=== PATIENT | female | born 1960 | race Caucasian/White ===

== ENCOUNTER → 2022-07-24 09:43 | Outpatient (CLI) | payer OTHER, SELFPAY ==
[2022-07-24 11:23] LABS: COVID19 -Nasal RAPID Negative (Negative)
== END ==
PROVIDERS: PCP Family Medicine; Visit Provider Surgery
DX: Z20.822 Contact with and (suspected) exposure to COVID-19 (principal); Z01.812 Encounter for preprocedural laboratory examination
CPT/HCPCS: 87635; C9803

== ENCOUNTER 2022-07-27 11:08 | Day surgery (SDC) | payer OTHER, SELFPAY ==
--- NOTE | 2022-07-27 | PATH_ITS ---
[facility] Accession Number: [id number] . 01 Material submitted: . PART A: colon - TRANSVERSE COLON POLYP X 2 PART B: colon - DESCENDING COLON POLYP X 2 PART C: rectosigmoid junction - RECTAL SIGMOID COLON POLYP . 01 Diagnosis: A. Transverse Colon Polyps: Tubular adenomas (two polyps removed). . B. Descending Colon Polyps: Tubular adenoma x2. . C. 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 No malignancy identified. [facility] 07/29/2022 1458 Local . 01 Comment: C. Given the presence of high-grade dysplasia and piecemeal sampling, correlation with the endoscopic findings before and after polypectomy to assure complete removal of the lesion, and a shortened surveillance interval are recommended. . 01 Electronically signed: . Cuhckie Mast MD, PhD, Pathologist NPI- [id number] . 01 Gross description: . A. Received in formalin and labeled transverse colon polyp x2, are multiple fragments of rodriguez soft tissue measuring 1.8 x 0.5 x 0.1 cm, in aggregate. All fragments are totally submitted in cassette A1. B. Received in formalin and labeled descending colon polyp x2, are two fragments of rodriguez soft tissue measuring 0.5 x 0.4 x 0.3 cm to 0.5 x 0.2 x 0.2 cm. The fragments are totally submitted in cassette B1. C. Received in formalin and labeled rectosigmoid colon polyp, are three fragments of rodriguez soft tissue. The fragments measure 1.9 x 1.5 x 0.8 cm to 0.8 x 0.8 x 0.6 cm. The largest fragment is serially sectioned and totally submitted in cassettes C1-C3. The second largest fragment is bisected and totally submitted in cassette C4 and the smallest fragment is bisected and totally submitted in cassette C5. (CP:[id number]) /ANGELINE 07/28/2022 1022 Local . 01 Pathologist provided ICD-10: D12.3, D12.4, D12.7 . 01 CPT . 382125, 862559, [id number] Specimen Comment: A courtesy copy of this report has been sent to [phone], [phone] Specimen Comment: [id number] Performed at: 01 [facility] [address] [place] [address] [id number] MD Landon Martin MD Phone: [phone]
[2022-07-27 11:39] VITALS: BP 130/75; PULSE 75; RESP 20; TEMP 36.9; O2SAT 98; BMI 39.9
[2022-07-27] MEDS: LACTATED RINGERS 1,000 ML 42 ML IV (11:58)
--- NOTE | 2022-07-27 12:18 | PM.HP.1 ---
History of Present Illness History of Present Illness Date Patient Seen: 07/27/22 Time Patient Seen: 12:18 Chief complaint: Colonoscopy Narrative: Personal history of adenomatous colon polyps Patient History Family & Social History Social History: household members spouse Tobacco & Substance use: Smoking Status Never smoker alcohol intake frequency a few times a month Substance Use Type does not use Meds Home Medications and Allergies Home Medications Medication Instructions Recorded Confirmed Type atorvastatin 40 mg tablet 40 mg PO DAILY 07/27/22 07/27/22 History fluoxetine 40 mg capsule 40 mg PO DAILY 07/27/22 07/27/22 History insulin glargine 100 unit/mL 50 unit SUBCUT QPM 07/27/22 07/27/22 History subcutaneous solution liraglutide 0.6 mg/0.1 mL (18 mg/3 1.8 mg SUBCUT DAILY 07/27/22 07/27/22 History mL) subcutaneous pen injector (Victoza 3-Bhanu) lisinopril 10 mg tablet 10 mg PO DAILY 07/27/22 07/27/22 History propranolol 20 mg tablet 20 mg PO BID 07/27/22 07/27/22 History Allergies Allergy/AdvReac Type Severity Reaction Status Date / Time Penicillins Allergy Verified 07/27/22 11:39 Review of Systems Review of Systems ROS: Yes All systems reviewed with the patient and are negative except as otherwise documented Exam Vital Signs (past 8 hours): - 07/27/22 11:39 Temperature 98.5 F Pulse Rate 75 Respiratory Rate 20 Blood Pressure 130/75 Pulse Oximetry 98 Oxygen Delivery Method Room Air Oxygen Delivery Method Room Air Const General: cooperative HENMT Head: normal to inspection Eyes General: appearance normal, both eyes and all related structures Neck Neck: normal visual inspection Chest Chest: normal inspection of the chest Resp Effort & Inspection: normal respiratory effort Cardio Rate: regular rate GI Inspection: normal to inspection Skin General: no rashes or lesions noted Neuro General: patient alert and patient awake Extrem General: normal to inspection and no pedal edema Psych Appearance: grossly normal Assessment & Plan Assessment & Plan narrative: 62-year-old female with a personal history of colon polyps. Surveillance colonoscopy is pursued today. Time Spent With Patient Critical Care time: I spent a total of [] minutes of critical care time on this patient's care today; this time is exclusive of procedural time.
--- NOTE | 2022-07-27 12:19 | PM.PREOP ---
Pre-operative Note COVID-19 COVID-19 status: Negative Result date/Date tested (Pos, Neg/Pending): 07/24/22 Criteria for continued procedure: Possibility delay results in more complex future surgery or treatment Interval Note History & Physical reviewed/Exam performed by Physician: Yes Changes to H&P: No ASA Class (for procedural sedation): II
--- NOTE | 2022-07-27 14:01 | PM.OP.COLON ---
Operative Date/Time/Diagnoses Date of procedure: 07/27/22 Time of procedure: 14:01 Pre-op diagnosis: Personal history of colon polyps Post-op diagnosis: same Procedure & Clinicians Study performed: Colonoscopy with hot snare polypectomy, Joy ink injection, and Endoclip deployment Same procedure as scheduled: Yes Indications: Personal history of colon polyps Surgeon: Devante Castanon Procedure Notes SCOAP/Timeout: Done Procedure in detail: After the risks and benefits were explained, written and verbal informed consent was obtained. The patient was brought into the procedure room and placed into the left lateral decubitus position. Please see anesthesia note for sedation details. Digital rectal examination was accomplished. The scope was introduced into the patient and advanced under direct visualization to the cecum as identified by the appendiceal orifice and ileocecal valve. The scope was slowly withdrawn to carefully examine the mucosa for any defects or lesions. Comprehensive imaging was accomplished throughout the rectum including the dentate line. The colon was decompressed, the scope was then removed from the patient who tolerated the procedure well. Adult colonoscope Bowel prep adequate Prolonged procedure time. Complicated challenging large rectosigmoid polyp. Twenty-two modifier is therefore requested. Scope withdrawal time: 35 minutes Sedation minutes: 42 Complications: none Impression: In the transverse colon there were 2 small polyps removed with cold snare. The larger of the 2 was 5-6 mm in greatest dimension. In the descending colon there were 2 7-8 mm sessile polyps removed with hot snare. In the rectosigmoid region about 18 cm from the anal verge was a semi pedunculated semi sessile polyp approximately 20-22 mm in greatest dimension. Initial attempt at a singular hot snare polypectomy revealed that there was residual polyp remaining. Polyp appeared to be completely excised after 3 separate excisions using the hot snare. The defect was closed with 2 endo clips. There was no post polypectomy bleeding at the time of the procedure. A 3rd Endo clip was initially considered and attempted but would not rotate into an appropriate position so this was abandoned. A small approximately 0.5 mL Joy ink tattoo was placed just distal to the lesion that had been removed. Endoscopic diagnosis 1. Multiple colon polyps 2. Large rectosigmoid polyp Post-procedure Plan for aftercare: Await histopathology to determine the most appropriate surveillance interval. If all histology is entirely benign, I would recommend a six-month follow-up exam considering the piecemeal excision format of the rectosigmoid polyp. Disposition: PACU
[2022-07-27 14:04] VITALS: BP 103/70; PULSE 69; RESP 15; TEMP 36.3; O2SAT 95
[2022-07-27 14:09] VITALS: BP 103/65; PULSE 66; RESP 13; O2SAT 96
[2022-07-27 14:14] VITALS: BP 108/73; PULSE 65; RESP 13; O2SAT 99
[2022-07-27 14:20] VITALS: BP 119/79; PULSE 66; RESP 16; O2SAT 99
[2022-07-27 14:30] VITALS: BP 131/82; PULSE 82; RESP 12; TEMP 36.1; O2SAT 100
== END 2022-07-27 14:43 | disposition home or self-care (01) ==
PROVIDERS: PCP Family Medicine; Referring Provider Internal Medicine Gastroenterology; Visit Provider Internal Medicine Gastroenterology
PROC: 0DJD8ZZ Inspection of Lower Intestinal Tract, Via Natural or Artificial Opening Endoscopic (ICD-10-PCS; CPT 45378; principal; 2022-07-27 12:30)
DX: Z12.11 Encounter for screening for malignant neoplasm of colon (principal); Z86.010 Personal history of colon polyps; D12.3 Benign neoplasm of transverse colon; D12.4 Benign neoplasm of descending colon; D12.7 Benign neoplasm of rectosigmoid junction
CPT/HCPCS: 45385; 45381; J2250; J2704; J3010

== ENCOUNTER → 2022-11-19 12:46 | Outpatient (CLI) | payer OTHER, SELFPAY ==
--- NOTE | 2022-11-19 | DI.CT.S_ITS ---
PROCEDURE: CT SHOULDER RIGHT WITHOUT CON INDICATIONS: Primary osteoarthritis, right shoulder TECHNIQUE: Noncontrast 1-1.5 mm thick sections acquired from the acromioclavicular joint to the inferior scapula, with coronal and sagittal reformatting. COMPARISON: [facility], CR, XR SHOULDER 2+ VIEWS RIGHT, 08/14/2022, 9:25. [facility], MR, MR SHOULDER RIGHT WITHOUT CONTRAST, 06/14/2019, 10:35. FINDINGS: Image quality: Excellent. Bones: Periarticular osteophyte formation at the acromioclavicular and glenohumeral joints. Hook osteophyte involving the inferomedial aspect of the humeral head. No osseous lesion. No fracture. Soft tissues: Multiple well corticated bony fragments within the glenohumeral joint, largest of which is in the posterosuperior aspect of the glenohumeral joint measuring 5 mm diameter. IMPRESSION: 1. Acromioclavicular and glenohumeral joint osteoarthritis. 2. Intra-articular loose bodies. Dictated by: Moni Rowland M.D. on 11/19/2022 at 13:48 Transcribed by: IRINEO on 11/19/2022 at 13:49 Approved by: Moni Rowland M.D. on 11/19/2022 at 16:13
== END ==
PROVIDERS: PCP Family Medicine; Referring Provider Orthopaedic Surgery; Visit Provider Orthopaedic Surgery
DX: M19.011 Primary osteoarthritis, right shoulder (principal); M24.011 Loose body in right shoulder
CPT/HCPCS: 73200

== ENCOUNTER 2023-02-03 09:57 | Day surgery (SDC) | payer OTHER, SELFPAY ==
[2023-02-03] MEDS: LACTATED RINGERS 1,000 ML 84 ML IV (10:11)
[2023-02-03 10:16] VITALS: BP 168/97; PULSE 75; RESP 18; TEMP 36.2; O2SAT 97; BMI 36.9
--- NOTE | 2023-02-03 10:45 | PM.OP.COLON ---
Operative Date/Time/Diagnoses Pre-op diagnosis: See indication and findings Procedure & Clinicians Study performed: Colonoscopy Indications: 6 months to check of large polyp removed to ensure complete resection Surgeon: Bess Quintana Procedure Notes Procedure in detail: After informed consent was obtained patient was placed in left lateral decubitus position. Video colonoscope was introduced the rectum slowly advanced cecum. On slow withdrawal mucosa was carefully examined. The scope was removed. The patient tolerated procedure well. Preparation was good. Blood loss none Complications none Sedation mac Findings 1. Large tattoo between 18 and 22 cm. In this area there absolutely no signs of residual polyp. 2. Otherwise negative colonoscopy to cecum Dulce Maria should have follow-up colonoscopy in 3 years.
--- NOTE | 2023-02-03 10:46 | PM.HP.1 ---
History of Present Illness History of Present Illness Date Patient Seen: 02/03/23 Chief complaint: Colonoscopy Narrative: Recheck colonoscopy to ensure complete polypectomy of large polyp PFSH Social History household members: spouse Smoking Status: Never smoker alcohol intake: current Meds Home Medications and Allergies Home Medications Medication Instructions Recorded Confirmed Type atorvastatin 40 mg tablet 40 mg PO DAILY 07/27/22 02/03/23 History fluoxetine 40 mg capsule 40 mg PO DAILY 07/27/22 02/03/23 History insulin glargine 100 unit/mL 50 unit SUBCUT QPM 07/27/22 02/03/23 History subcutaneous solution lisinopril 10 mg tablet 10 mg PO DAILY 07/27/22 02/03/23 History propranolol 20 mg tablet 20 mg PO BID 07/27/22 02/03/23 History metformin 500 mg tablet,extended 2,000 mg PO DAILY 02/03/23 02/03/23 History release 24 hr semaglutide 2 mg/dose (8 mg/3 mL) 2 mg SUBCUT QWEEK 02/03/23 02/03/23 History subcutaneous pen injector (Ozempic) Allergies Allergy/AdvReac Type Severity Reaction Status Date / Time Penicillins Allergy Verified 02/03/23 10:28 Exam Vital Signs (past 8 hours): - 02/03/23 10:16 Temperature 97.2 F L Pulse Rate 75 Respiratory Rate 18 Blood Pressure 168/97 H Pulse Oximetry 97 Oxygen Delivery Method Room Air Oxygen Delivery Method Room Air Narrative Exam Narrative: Oropharynx free of lesions Chest clear to auscultation percussion Cardiac exam reveals no S3 or murmur Assessment & Plan Assessment & Plan narrative: Large polyp removed 6 months ago need to recheck site. Risks, benefits, alternatives have been explained.
[2023-02-03 11:10] VITALS: BP 112/67; PULSE 72; RESP 17; TEMP 36.9; O2SAT 97
[2023-02-03 11:13] VITALS: BP 97/65; PULSE 87; RESP 20; O2SAT 97
[2023-02-03 11:19] VITALS: BP 118/77; PULSE 72; RESP 15; TEMP 37.2; O2SAT 96
[2023-02-03 11:23] VITALS: BP 118/80; PULSE 68; RESP 14; O2SAT 98
== END 2023-02-03 11:38 | disposition home or self-care (01) ==
PROVIDERS: PCP Family Medicine; Referring Provider Internal Medicine Gastroenterology; Visit Provider Internal Medicine Gastroenterology
PROC: 0DJD8ZZ Inspection of Lower Intestinal Tract, Via Natural or Artificial Opening Endoscopic (ICD-10-PCS; CPT 45378; principal; 2023-02-03 11:00)
DX: Z86.010 Personal history of colon polyps (principal)
CPT/HCPCS: 45378; J2704

== ENCOUNTER → 2023-03-16 12:32 | Outpatient (CLI) | payer OTHER, SELFPAY | PROVIDERS: PCP Family Medicine; Referring Provider Orthopaedic Surgery; Visit Provider Orthopaedic Surgery | DX: Z01.818 Encounter for other preprocedural examination (principal) | CPT/HCPCS: 93005 ==

== ENCOUNTER 2023-04-28 06:31 | Inpatient (IN) | payer OTHER, SELFPAY ==
[2023-04-19 09:53] VITALS: BMI 34.2
[2023-04-28] VITALS (8 sets, daily range): BP systolic 116–156; BP diastolic 66–90; PULSE 66–81; RESP 12–17; TEMP 36.3–36.6; O2SAT 94–99; BMI 34.2
--- NOTE | 2023-04-28 06:00 | DI.RAD.S_ITS ---
PROCEDURE: XR SHOULDER RT MIN 2V INDICATIONS: TSA TECHNIQUE: 1 views of the shoulder were acquired. COMPARISON: [facility], CT, CT SHOULDER RIGHT WITHOUT CON, 11/19/2022, 12:53. FINDINGS: Bones: Partial right shoulder arthroplasty. There is good anatomic alignment. Soft tissues: No suspicious soft tissue calcifications. IMPRESSION: Postoperative shoulder arthroplasty. Dictated by: Rosa Pacheco M.D. on 04/28/2023 at 10:38 Approved by: Rosa Pacheco M.D. on 04/28/2023 at 10:39
[2023-04-28] MEDS: LACTATED RINGERS 1,000 ML 42 ML IV ×2 (07:20→10:00)
--- NOTE | 2023-04-28 07:20 | PM.PREOP ---
Pre-operative Note Interval Note History & Physical reviewed/Exam performed by Physician: Yes Changes to H&P: No
[2023-04-28] MEDS: TRANEXAMIC ACID 1,000 MG VIAL 1000 MG INJ ×2 (08:19→09:56)
[2023-04-28] MEDS: CEFAZOLIN 2 GM/100 ML PREMIX 100 ML IV (08:19)
--- NOTE | 2023-04-28 08:49 | SUR.OPER ---
Beach chair with Skytron shoulder positioner. Lower body on padded OR bed. Head in foam padded head cradle, secured with straps. Non-operative arm padded with gel pad and secured <90 degrees abduction at patients side. 2X Pillows under knees. Gel pad under bilateral heels and heels floated. Safety belt at thigh. Cloth tape over blanket over lower legs.
--- NOTE | 2023-04-28 08:51 | SUR.OPER ---
Patients glasses placed in hospital provided black case with patient label and placed in hospital provided belongings bag. Patient's sister has the belongings bag with her.
[2023-04-28] MEDS: BUPIVACAINE 0.25% (PF) 30 ML, EPINEPHrine 0.15 MG INJ (09:00)
[2023-04-28] MEDS: ACETAMINOPHEN IV 1,000 MG/100 ML VIAL 400 MG IV (09:45)
--- NOTE | 2023-04-28 10:21 | PM.OP.1 ---
Operative Date/Time/Diagnoses Date of procedure: 04/28/23 Time of procedure: 10:21 Pre-op diagnosis: Right glenohumeral arthritis Post-op diagnosis: same Procedure & Clinicians Procedure: Right anatomic total shoulder arthroplasty Same procedure as scheduled: Yes Indications: Indications: This is a 62-year-old female who has primary osteoarthritis of the glenohumeral joint. Symptoms have been present for years, insidious onset. Patient has failed conservative therapy including injections, physical therapy, anti-inflammatories and activity modification. After extensive discussion in clinic, they wished to go forward with surgery. Risks and benefits were described including the risk of infection, bleeding, damage to internal structures including nerves. We also discussed the risk of failure of surgery and the need for revision surgery as well as the risk of anesthesia. The patient expressed understanding with these risks and wished to go forward with surgery. Surgeon: Casey Alegre Tractor Sweeper Driver: Sheng Pretty Anesthesia Type: General Operative Notes Findings: Findings: Osteoarthritis of the glenoid and humeral head as noted on preoperative imaging and under direct visualization. Intact rotator cuff Closure Type: primary Specimen(s): none sent Prosthetic devices, grafts, tissues, transplants, or devices: [employer]plants CortiLoc Pegged Glenoid UHMWPE S40 Simpliciti Nucleus Size 1 Simpliciti CoCr head size 43 x 16 Estimated Blood Loss (mL): 50 Procedure in detail: Operative note: Patient was seen in the preoperative holding unit. The correct right shoulder was identified and marked with my initials. Again we discussed the risks and benefits of surgery and they wished to go forward with surgery. The patient was brought back to the operating room and placed supine on the operating table. She underwent smooth endotracheal intubation. All prominences were padded and they were placed into the beach chair position. Intravenous antibiotics were given. The right shoulder was then prepped with the standard sterile preparation and draping. A time-out was then performed in my initials were again identified on the correct shoulder. 1 g of IV tranexamic acid was given. A standard deltopectoral incision was made. Skin flaps were made. The cephalic vein was identified and retracted laterally. This was protected throughout the remainder of the case. Sharp dissection was made along the deltoid, subacromial and subcoracoid space to release adhesions. The conjoined tendon was identified and the axillary nerve was palpated and continuous using the tug test. It was protected throughout the remainder of the case. A brown retractor was placed underneath the deltoid muscle and a darach retractor underneath the conjoint tendon. The anterior circumflex artery and associated veins on the lower border of the subscapularis were identified and tied off using 0-Vicryl. The biceps tendon was identified in the bicipital groove. This was released from its sheath, and taken from its origin on the glenoid and tied into the pectoralis tendon for a solid tenodesis. We then began a subscapularis peel. The subscapularis was tagged with an Ethibond suture. A 360 degree circumferential release of the subscapularis was performed with protection of the axillary nerve. The coracohumeral ligament was released at the base of the coracoid. The coracoacromial ligament was left intact. The shoulder was then dislocated. Osteophytes were removed using combination of rongeur and osteotome. The rotator cuff was noted to be intact. Using an oscillating saw a conservative humeral head cut was made using the patient's jackson version. The head was measured and a guide for size 43 simpliciti humeral head was used to drill a central hole followed by impaction. Attention was then turned to the glenoid. After retracting the humeral head posteriorly, release of the capsule and labrum was performed. Central guidewire was placed. The glenoid was then reamed. Center drill hole followed by Peripheral holes were drilled. At this point dilute Betadine wash was performed for 2 minutes. Medium viscosity cement was mixed and the drill holes were completely dried. A all polyethylene pegged glenoid was then selected, and cemented into the glenoid. Turning back to the humerus, the humeral head was delivered and 3 seperate Nice Loupes were passed through drill holes in the bicipital groove. The Size 1 nucleus was then impacted into the humerus and a size 43 stemless humeral head was placed. The shoulder was then reduced and again brought through range of motion and was felt to be stable. The interval was then closed using #2 ethibond. The subscapularis was then repaired using a modified racking hitch with niece loupes. The deltopectoral interval was then closed with #2 Ethibond. The skin was closed with 2-0 PDS and serena followed by Aquacel dressing. Patient was awoken from anesthesia and brought back to the postoperative recovery unit without issue. They were placed into a sling. Assisting participation: This operation could not have been safely performed (without compromising the technical results or length of the procedure) without the assistance of a skilled certified ophthalmic surgical assistant. The certified ophthalmic surgical assistant was medically necessary for proper positioning, retraction and manipulation of instruments, proper exposure, graft prep, and manipulation of tissue. Complications: none Post-operative Condition: stable Disposition: PACU Plan for aftercare: Postoperative instructions: Sling to remain on for 6 weeks. No external rotation past neutral for 6 weeks. Okay for sling to come off for shower and gentle pendulum exercises. Okay to shower over the Aquacel dressing. If any water gets underneath the dressing, remove the dressing. First postoperative visit in 2 weeks.
--- NOTE | 2023-04-28 11:11 | SUR.PHASEII ---
Patient instructed on IS. She is using correctly getting volume to 750. Patient is aware she should use 1 x every hour while awake.
== END 2023-04-28 11:55 | disposition home or self-care (01) | DRG 483 ==
PROVIDERS: Admitting Provider Orthopaedic Surgery; PCP Family Medicine; Referring Provider Orthopaedic Surgery; Visit Provider Orthopaedic Surgery
PROC: 0RQJ0ZZ Repair Right Shoulder Joint, Open Approach (ICD-10-PCS; CPT 23472; principal; 2023-04-28 07:45)
DX: M19.011 Primary osteoarthritis, right shoulder (principal)
CPT/HCPCS: 64450; 73030; 82962; C1776; J0131; J0171; J0330; J0690; J1100; J2405; J2704; J3010